=== PATIENT | female | born 1960 | race Caucasian/White ===

== ENCOUNTER 2019-11-22 08:36 | Inpatient (IN) | payer BC ==
[2019-11-16 13:05] LABS: BASOPHILS # (AUTO) 0.1 X10'3 (0-0.2); BASOPHILS % (AUTO) 1.4 % (0-1); EOSINOPHILS # (AUTO) 0.7 X10'3 (0-0.9); LYMPHOCYTES # (AUTO) 2.6 X10'3 (1.1-4.8); LYMPHOCYTES % (AUTO) 26.9 % (21-51); MEAN CORPUSCULAR HEMOGLOBIN 33.2 PG (27.0-31.0); MEAN CORPUSCULAR HGB CONC 34.3 g/dL (33.0-36.5); MEAN CORPUSCULAR VOLUME 96.9 FL (78-98); MEAN PLATELET VOLUME 7.9 FL (7.4-10.4); MONOCYTES # (AUTO) 0.8 X10'3 (0-0.9); MONOCYTES % (AUTO) 8.7 % (2-12); NEUTROPHILS # (AUTO) 5.4 X10'3 (1.8-7.7); PRE OP HEMATOCRIT 41.6 % (35.0-45.0); PRE OP HEMOGLOBIN 14.3 g/dL (12.0-16.0); PRE OP PLATELET COUNT 258 X10'3 (140-440); RED BLOOD COUNT 4.29 X10'6 (4.20-5.60); RED CELL DISTRIBUTION WIDTH 12.7 % (11.5-14.5)
[2019-11-16 13:14] LABS: PRE OP INR 1.1 INR; PRE OP PROTIME 10.9 SECONDS (9.0-12.0)
[2019-11-16 13:17] LABS: ALBUMIN 3.9 G/DL (3.4-5.0); ALBUMIN/GLOBULIN RATIO 1.2 (1.1-1.5); ALKALINE PHOSPHATASE 57 IU/L (46-116); BLOOD UREA NITROGEN 13 MG/DL (7-18); BUN/CREATININE RATIO 19.1 (6.6-38.0); CALCIUM 8.7 MG/DL (8.5-10.1); CHLORIDE 106 MMOL/L (99-107); CREATININE 0.68 MG/DL (0.40-0.90); PRE OP ALT 24 U/L (30-65); PRE OP ANION GAP 8 (8-16); PRE OP AST 18 U/L (10-37); PRE OP BILIRUB, TOTAL 0.3 MG/DL (0.0-1.0); PRE OP GLUCOSE 89 MG/DL (70-104); PRE OP POTASSIUM 4.3 MMOL/L (3.4-5.1); PRE OP SODIUM 142 MMOL/L (135-145); TOTAL CARBON DIOXIDE 27.6 MMOL/L (24-32); TOTAL PROTEIN 7.2 G/DL (6.4-8.2); eGFR 90 ML/MIN
[2019-11-22] VITALS (16 sets, daily range): BP systolic 101–135; BP diastolic 57–102
[~2019-11-22] VITALS: Ht 162.6 cm; Wt 61.2 kg
[~2019-11-22 08:36] MED LIST: ACET-1025 PO; BUPIVAcaine/PF 2.5 mg/ml (0.25%) 30ml vial ONE; CALC1TAB PO; DEXL60CA3 PO; ESTR-4 PO; FLUO-1 PO; IRON PO; LIDOcaine 1% 30ml preserv. free vial ONE; LINA145C PO; SUPER B COMPLEX PO; clindamycin-Cleocin 900mg/D5W 50 ML IV ONE; famotidine 20mg tablet PO ONE; gentamicin inj 300 MG in normal saline 100ml IV soln 92.5 ML IV ONE; ringers solution, lacted 1,000 ML IV SCH
[2019-11-22] MEDS ORDERED: dexamethasone sod phosphate 10mg/ml inj ONE (11:43)
[2019-11-22] MEDS ORDERED: sevoflurane 250ml liquid IH ONE (11:43)
[2019-11-22] MEDS ORDERED: midazolam 2 mg/2 ml injection ONE (11:49)
[2019-11-22] MEDS ORDERED: fentaNYL /PF 50mcg/ml 5ml ampule ONE (11:49)
[2019-11-22] MEDS ORDERED: rocuronium 10mg/ml inj IV ONE (11:50)
[2019-11-22] MEDS ORDERED: propofol inj 20 ML IV ONE (11:50)
[2019-11-22] MEDS ORDERED: ringers solution, lacted 1,000 ML IV SCH (12:21)
[2019-11-22] MEDS ORDERED: morphine 2 MG/ML inj. syringe IV PRN (12:25)
[2019-11-22] MEDS ORDERED: meperidine/PF 25mg/ml syringe IV PRN ×2 (12:25)
[2019-11-22] MEDS ORDERED: ondansetron/PF 4mg/2ml inj IV PRN (12:25)
[2019-11-22] MEDS ORDERED: morphine 4 MG/ML inj SYRINge IV PRN (12:25)
[2019-11-22] MEDS ORDERED: proCHLORperazine 10 MG/2 ml inj IV PRN (12:25)
[2019-11-22] MEDS ORDERED: ondansetron/PF 4mg/2ml inj ONE (13:09)
[2019-11-22] MEDS ORDERED: neostigmine methylsulfate 1 MG/ML 10ml vial ONE (13:09)
[2019-11-22] MEDS ORDERED: glycopyrrolate 0.2mg/ml inj ONE (13:09)
[2019-11-22] MEDS ORDERED: zolpidem 5mg tablet PO PRN (13:20)
--- NOTE | 2019-11-22 13:20 | NUR ---
RECEIVED FROM OR VIA BED ACCOMPANIED BY ANESTHESIOLOGIST DR CAREY, REPORT GIVEN. PT DROWSY BUT AROUSES EASILY WITH NO COMPLAINT OF PAIN AT THIS TIME. 20 GAUGE PIV L WRIST PATENT AND RUNNING LR AT 100 ML/HR. LG BANDAID DRESSING X3 TO ABD CDI, ABD SOFT. PPULSES PRESENT, GOOD CAP REFILL, VSS, [place]O, SCDS APPLIED, F/C DRAINING CLEAR YELLOW FLUID, RESTING COMFORTABLY.
[2019-11-22] MEDS ORDERED: HYDROmorphone 1 mg/ml syringe IV PRN (13:25)
[2019-11-22] MEDS: meperidine/PF 25mg/ml syringe IV PRN ×2 (13:38→14:19)
--- NOTE | 2019-11-22 13:45 | NUR ---
Patient in room [facility]. I have received report from Cassi GOLDMAN and had the opportunity to ask questions and assume patient care.
--- NOTE | 2019-11-22 15:48 | NUR ---
patient alert and orientated. no c/o pain. Orientated to room. VSS IDC clear yellow urine. lapsites x3 CDI. will continue to monitor
[2019-11-22] MEDS: Potassium Cl inj 20 MEQ in ringers solution, lacted 1,000 ML IV SCH (16:20)
[2019-11-22] MEDS: oxyCODONE/APAP 5-325mg tablet PO PRN (16:28)
--- NOTE | 2019-11-22 17:10 | NUR ---
percocet given for pain with relief.
--- NOTE | 2019-11-22 18:19 | NUR ---
Patient in room [facility]. I have received report from JONES Ayon and had the opportunity to ask questions and assume patient care. Addendum: 11/22/19 at 1820 by Sarah Uribe RN Amended: Links added.
--- NOTE | 2019-11-22 18:31 | NUR ---
Problems reprioritized. Patient report given, questions answered & plan of care reviewed with Herminia Caldera RN.
[2019-11-22] MEDS: ondansetron/PF 4mg/2ml inj IV PRN (21:06)
[2019-11-22] MEDS: pantoprazole 40mg Tablet.DR PO SCH (21:07)
[2019-11-22] MEDS: enoxaparin 30mg/0.3ml syringe SQ SCH (21:07)
[2019-11-23] VITALS: BP 108/60
[2019-11-23] MEDS: oxyCODONE/APAP 5-325mg tablet PO PRN ×2 (00:38→09:49)
[2019-11-23] MEDS: Potassium Cl inj 20 MEQ in ringers solution, lacted 1,000 ML IV SCH ×2 (00:39→09:50)
[2019-11-23 04:52] VITALS: BP 125/62
--- NOTE | 2019-11-23 05:59 | NUR ---
F/C d/c's at 0530 and patient walked about 300 feet
--- NOTE | 2019-11-23 06:29 | NUR ---
Problems reprioritized. Patient report given, questions answered & plan of care reviewed with JONES Pillai.
--- NOTE | 2019-11-23 06:30 | NUR ---
Patient in room [facility]. I have received report from Herminia Menendez RN and had the opportunity to ask questions and assume patient care.
[2019-11-23] MEDS: ondansetron/PF 4mg/2ml inj IV PRN (07:15)
[2019-11-23 08:00] VITALS: BP 128/64
[2019-11-23] MEDS ORDERED: LINACLOTIDE 145 MCG CAP PO SCH (08:00)
[2019-11-23] MEDS ORDERED: calcium carbonate/vitamin D3 tablet PO SCH (08:00)
[2019-11-23] MEDS: pantoprazole 40mg Tablet.DR PO SCH (08:00)
[2019-11-23] MEDS ORDERED: FLUoxetine 20mg capsule PO SCH (08:00)
[2019-11-23] MEDS: enoxaparin 30mg/0.3ml syringe SQ SCH (08:00)
[2019-11-23] MEDS ORDERED: metoclopramide 5 mg/ml inj IV PRN (08:55)
[2019-11-23 12:00] VITALS: BP 135/69
[2019-11-23] MEDS ORDERED: ondansetron 4mg rapidly disintigrating tab PO PRN (13:30)
[2019-11-23] MEDS ORDERED: HYDR-4383 PO (13:35)
[2019-11-23] MEDS ORDERED: ONDA4TAB12 PO (13:54)
== END 2019-11-23 14:34 | disposition home or self-care (01) | DRG 331 ==
LOC: PRE-OP 08:36 → EDSTATUS 12:45 → SUR 3N 13:17
PROVIDERS: ADMIT Surgery; ATTEND Surgery
PROC: 8E0W4CZ Robotic Assisted Procedure of Trunk Region, Percutaneous Endoscopic Approach (ICD-10-PCS; 2019-11-22)
PROC: 0DQ84ZZ Repair Small Intestine, Percutaneous Endoscopic Approach (ICD-10-PCS; principal; 2019-11-22 11:43)
DX: K56.1 Intussusception (principal); Z98.84 Bariatric surgery status; Z20.828 Contact with and (suspected) exposure to other viral communicable diseases
CPT/HCPCS: Z7506; Z7508; 36415; 71046; 80053; 82948; 85025; 85610; 85730; 86885; 86900; 86901; 87081; 87635; 93005; A4215; A4618; C1758; G0378; J1100; J1170; J1580; J1650; J2001; J2175; J2250; J2405; J2704; J2710; J2765; J3010; J3480; J3490; J7120

== ENCOUNTER → 2021-01-09 | Outpatient (CLI) | payer BC ==
[~2021-01-09] MED LIST changes: -BUPIVAcaine/PF 2.5 mg/ml (0.25%) 30ml vial ONE; +HYDR-4383 PO; -LIDOcaine 1% 30ml preserv. free vial ONE; +ONDA4TAB12 PO; -clindamycin-Cleocin 900mg/D5W 50 ML IV ONE; -famotidine 20mg tablet PO ONE; -gentamicin inj 300 MG in normal saline 100ml IV soln 92.5 ML IV ONE; -ringers solution, lacted 1,000 ML IV SCH
== END | disposition home or self-care (01) ==
LOC: RAD 09:22
DX: R10.32 Left lower quadrant pain (principal)
CPT/HCPCS: 76705

== ENCOUNTER 2021-05-14 11:56 | Day surgery (SDC) | payer BC, MEDICAID ==
[2021-05-07 15:38] LABS: CLARITY,URINE CLEAR (Clear); COLOR,URINE YELLOW (Yellow); GLUCOSE, URINE NEGATIVE (Neg); KETONES,URINE NEGATIVE (Neg); LEUKOCYTE ESTERASE ,URINE NEGATIVE (Neg); NITRITES, URINE NEGATIVE (Neg); OCCULT BLOOD,URINE NEGATIVE (Neg); PROTEIN,URINE NEGATIVE (Neg); UROBILINOGEN,URINE 0.2 E.U/dL (0.2-1.0)
[2021-05-07 15:41] LABS: UA COLLECTION TYPE CLN CATCH MIDSTREAM
[2021-05-07 15:45] LABS: BASOPHILS # (AUTO) 0.1 X10'3 (0-0.2); BASOPHILS % (AUTO) 1.2 % (0-1); EOSINOPHILS # (AUTO) 0.6 X10'3 (0-0.9); EOSINOPHILS % (AUTO) 6.2 % (0-6); LYMPHOCYTES # (AUTO) 2.9 X10'3 (1.1-4.8); LYMPHOCYTES % (AUTO) 28.8 % (21-51); MEAN CORPUSCULAR HEMOGLOBIN 31.6 PG (27.0-31.0); MEAN CORPUSCULAR HGB CONC 33.8 g/dL (33.0-36.5); MEAN CORPUSCULAR VOLUME 93.5 FL (78-98); MEAN PLATELET VOLUME 7.9 FL (7.4-10.4); MONOCYTES # (AUTO) 0.8 X10'3 (0-0.9); MONOCYTES % (AUTO) 7.6 % (2-12); NEUTROPHILS # (AUTO) 5.6 X10'3 (1.8-7.7); NEUTROPHILS % (AUTO) 56.2 % (42-75); PRE OP HEMATOCRIT 38.9 % (35.0-45.0); PRE OP HEMOGLOBIN 13.1 g/dL (12.0-16.0); PRE OP PLATELET COUNT 271 X10'3 (140-440); RED BLOOD COUNT 4.16 X10'6 (4.20-5.60); RED CELL DISTRIBUTION WIDTH 13.1 % (11.5-14.5)
[2021-05-07 15:55] LABS: ALBUMIN 3.1 G/DL (3.4-5.0); ALBUMIN/GLOBULIN RATIO 1.3 (1.1-1.5); ALKALINE PHOSPHATASE 84 IU/L (46-116); BLOOD UREA NITROGEN 22 MG/DL (7-18); BUN/CREATININE RATIO 43.1 (6.6-38.0); CALCIUM 8.1 MG/DL (8.5-10.1); CHLORIDE 110 MMOL/L (99-107); CREATININE 0.51 MG/DL (0.40-0.90); PRE OP ALT 27 U/L (30-65); PRE OP ANION GAP 10 (8-16); PRE OP AST 19 U/L (10-37); PRE OP BILIRUB, TOTAL 0.2 MG/DL (0.0-1.0); PRE OP GLUCOSE 97 MG/DL (70-104); PRE OP POTASSIUM 4.1 MMOL/L (3.4-5.1); PRE OP SODIUM 146 MMOL/L (135-145); TOTAL CARBON DIOXIDE 25.8 MMOL/L (24-32); TOTAL PROTEIN 5.4 G/DL (6.4-8.2); eGFR > 90 ML/MIN
[~2021-05-14] VITALS: Ht 162.6 cm; Wt 61.5 kg
[~2021-05-14 11:56] MED LIST changes: -ACET-1025 PO; +ASCO-139 PO; +ASPI-1085 PO; +AZEL137S4 BOTHNARES; +BACL20TA PO; +CALC-1215 PO; -CALC1TAB PO; +CARB15DR EACHEYE; -ESTR-4 PO; -HYDR-4383 PO; +LORA10TA7 PO; +MULT-1085 PO; +NAPR-56 PO; -ONDA4TAB12 PO; +PYRI-3 PO; +SENN-263 PO; -SUPER B COMPLEX PO; +TRAM50TA2 PO; +albuterol 2.5 MG/3 ML nebule NEB PRN; +famotidine 20mg tablet PO ONE; +ringers solution, lacted 1,000 ML IV SCH
[2021-05-14 12:00] VITALS: BP 138/83
[2021-05-14] MEDS ORDERED: labetalol 20mg/4ml (5mg/ml) syringe IV PRN (13:10)
[2021-05-14] MEDS ORDERED: ringers solution, lacted 1,000 ML IV SCH (13:10)
[2021-05-14] MEDS ORDERED: hydrALAZINE 20mg/ml inj. IV PRN (13:10)
[2021-05-14] MEDS ORDERED: fentaNYL/PF 50MCG/1 ML 2ML syringe IV PRN ×2 (13:10)
[2021-05-14] MEDS ORDERED: morphine 2 MG/ML inj. syringe IV PRN (13:10)
[2021-05-14] MEDS ORDERED: morphine 4 MG/ML inj SYRINge IV PRN (13:10)
[2021-05-14] MEDS ORDERED: ondansetron/PF 4mg/2ml inj IV PRN (13:10)
[2021-05-14] MEDS ORDERED: LIDOcaine 1% 30ml preserv. free vial ONE (14:24)
[2021-05-14] MEDS ORDERED: BUPIVAcaine 0.5% inj/PF 30 ML ONE (14:24)
[2021-05-14] MEDS ORDERED: sevoflurane 250ml liquid IH ONE (14:44)
[2021-05-14] MEDS ORDERED: fentaNYL/PF 50MCG/1 ML 2ML syringe ONE (14:49)
[2021-05-14] MEDS ORDERED: midazolam 1 mg/ML 2ml injection ONE (14:50)
[2021-05-14] MEDS ORDERED: propofol inj 20 ML IV ONE (14:51)
[2021-05-14] MEDS ORDERED: ondansetron/PF 4mg/2ml inj ONE (14:51)
[2021-05-14] MEDS ORDERED: LIDOcaine 2% (20mg/ml) 5ml vial ONE (14:52)
[2021-05-14] MEDS ORDERED: dexamethasone sod phosphate 4mg/ml inj. ONE (14:53)
[2021-05-14] MEDS ORDERED: bacitracin 15gm ointment TP ONE (15:45)
[2021-05-14 15:52] VITALS: BP 128/82
--- NOTE | 2021-05-14 15:59 | NUR ---
Received from OR via [facility], accompanied by Anesthesiologist JM and report given by Anesthesiolgist. PATIENT WITH 20 GAUGE IV R HAND LR @ 100. 10L MASK 100% SATURATED. HAWA PAD PRESENT CDI. VSS. NO COMPLAINTS OF PAIN. Addendum: 05/14/21 at 1610 by Arsenio Canela RN, RN Amended: Links added.
[2021-05-14 16:00] VITALS: BP 128/82
[2021-05-14 16:10] VITALS: BP 120/77
[2021-05-14 16:20] VITALS: BP 121/70
[2021-05-14 16:30] VITALS: BP 111/68
--- NOTE | 2021-05-14 16:42 | NUR ---
ALL DISCHARGE CRITERIA HAS BEEN MET. VSS, PAIN AT A TOLERABLE LEVEL, VOIDING AND ABLE TO SAFELY AMBULATE AND TRANSFER SELF. IV TAKEN OUT WITHOUT ANY COMPLICATIONS. ALL DISCHARGE INSTRUCTIONS COVERED WITH PATIENT AND ALL QUESTIONS ANSWERED. PATIENT TAKEN OUT VIA WHEELCHAIR TO PERSONAL VEHICLE WHERE FAMILY/FRIEND DROVE PATIENT HOME. Addendum: 05/14/21 at 1702 by Arsenio Canela RN, RN Amended: Links added.
== END 2021-05-14 16:42 | disposition home or self-care (01) ==
LOC: PAS 11:56
PROVIDERS: ATTEND Obstetrics & Gynecology Obstetrics
DX: N90.89 Other specified noninflammatory disorders of vulva and perineum (principal); L72.0 Epidermal cyst; L91.8 Other hypertrophic disorders of the skin; D64.9 Anemia, unspecified; F41.9 Anxiety disorder, unspecified; F32.A Depression, unspecified; G43.909 Migraine, unspecified, not intractable, without status migrainosus; F17.210 Nicotine dependence, cigarettes, uncomplicated; Z98.84 Bariatric surgery status; Z20.822 Contact with and (suspected) exposure to COVID-19; Z98.890 Other specified postprocedural states; Z79.899 Other long term (current) drug therapy; Z88.0 Allergy status to penicillin; Z82.49 Family history of ischemic heart disease and other diseases of the circulatory system
CPT/HCPCS: 36415; 56605; 56606; 71046; 80053; 81003; 82948; 85025; 86885; 86900; 86901; 93005; J1100; J2250; J2405; J2704; J3010; J3490; J7030; J7120; S0020; U0003; U0005; Z7506; Z7508; Z7512; A4618; A6258; A7000

== ENCOUNTER 2022-09-13 06:04 | Emergency (ER) | payer BC, MEDICAID ==
[~2022-09-13] VITALS: Ht 162.6 cm; Wt 63.8 kg
[~2022-09-13 06:04] MED LIST changes: -albuterol 2.5 MG/3 ML nebule NEB PRN; -famotidine 20mg tablet PO ONE; -ringers solution, lacted 1,000 ML IV SCH
[2022-09-13 07:38] LABS: BASOPHILS # (AUTO) 0.1 X10'3 (0-0.2); BASOPHILS % (AUTO) 0.8 % (0-1); EOSINOPHILS # (AUTO) 0.1 X10'3 (0-0.9); EOSINOPHILS % (AUTO) 0.7 % (0-6); HEMATOCRIT 47.5 % (35.0-45.0); HEMOGLOBIN 15.6 g/dl (12.0-16.0); LYMPHOCYTES # (AUTO) 2.8 X10'3 (1.1-4.8); LYMPHOCYTES % (AUTO) 20.3 % (21-51); MEAN CORPUSCULAR HEMOGLOBIN 31.1 PG (27.0-31.0); MEAN CORPUSCULAR HGB CONC 32.8 g/dL (33.0-36.5); MEAN CORPUSCULAR VOLUME 94.9 FL (78-98); MEAN PLATELET VOLUME 7.3 FL (7.4-10.4); MONOCYTES # (AUTO) 1.5 X10'3 (0-0.9); MONOCYTES % (AUTO) 10.7 % (2-12); NEUTROPHILS # (AUTO) 9.4 X10'3 (1.8-7.7); NEUTROPHILS % (AUTO) 67.5 % (42-75); PLATELET COUNT 306 X10'3 (140-440); RED CELL DISTRIBUTION WIDTH 14.5 % (11.5-14.5); WHITE BLOOD COUNT 13.9 X10'3 (4.5-11.0)
[2022-09-13 08:15] VITALS: BP 118/62
[2022-09-13 09:33] LABS: BLOOD UREA NITROGEN 19 MG/DL (7-18); CHLORIDE 105 MMOL/L (99-107); CREATININE 0.76 MG/DL (0.40-0.90); GLUCOSE 82 MG/DL (70-104); POTASSIUM 3.8 MMOL/L (3.5-5.1); SODIUM 141 MMOL/L (135-145); eGFR 78 ML/MIN
[2022-09-13 09:35] LABS: ALANINE AMINOTRANSFERASE 21 U/L (12-78); ALBUMIN 3.7 G/DL (3.4-5.0); ALBUMIN/GLOBULIN RATIO 1.2 (1.1-1.5); ALKALINE PHOSPHATASE 86 IU/L (46-116); ANION GAP 19 (8-16); ASPARTATE AMINO TRANSFERASE 17 U/L (10-37); BILIRUBIN,TOTAL 0.2 MG/DL (0.1-1.0); CALCIUM 8.8 MG/DL (8.5-10.1); TOTAL CARBON DIOXIDE 17.1 MMOL/L (24-32); TOTAL PROTEIN 6.9 G/DL (6.4-8.2)
== END 2022-09-13 08:19 | disposition home or self-care (01) ==
LOC: ER 06:05
DX: F41.9 Anxiety disorder, unspecified (principal); Z88.0 Allergy status to penicillin; Z98.890 Other specified postprocedural states
CPT/HCPCS: 36415; 80053; 85025; 99283

== ENCOUNTER 2024-09-03 13:34 | Emergency (ER) | payer MEDICARE, MEDICAID ==
[~2024-09-03] VITALS: Ht 162.6 cm; Wt 54.5 kg
[~2024-09-03 13:34] MED LIST changes: -ASPI-1085 PO; +ASPI-1395 PO; -SENN-263 PO; +SENN-360 PO
[2024-09-03 13:53] VITALS: BP 138/81; PULSE 71; RESP 18; O2SAT 98
--- NOTE | 2024-09-03 16:25 | Physician Documentation ---
History of Present Illness ~ Chief Complaint: Flu Symptoms Stated Complaint: COVID POSITIVE Time Seen by MD: 15:33 Primary Medical Doctor: Billy HPI 63-year-old female presents to the ED with complaint of being positive for COVID. She states she is otherwise healthy. States that she feels tired and does not have a cough.negative Fever. Medication Reconciliation Allergies: Coded Allergies: Penicillins (Verified Allergy, Intermediate, RASH, 09/03/24) Scheduled Ascorbic Acid (Vitamin C), 1 TAB PO DAILY, (Reported) Aspirin/Caffeine (Anacin 400-32 mg Tablet), 1 TAB PO DAILY, (Reported) Azelastine HCl (Azelastine HCl), 2 SPRAYS BOTHNARES DAILY, (Reported) Baclofen (Baclofen), 1 TAB PO TID, (Reported) Calcium Carbonate/Vitamin D3 (Calcium + D 600 Mg Tablet), 2 EACH PO DAILY, (Reported) Carboxymethylcellulose Sodium (Refresh Tears), 2 DROP EACHEYE DAILY, (Reported) Dexlansoprazole (Dexilant), 60 MG PO BID, (Reported) Fluoxetine Hcl (Prozac), 1 TAB PO DAILY, (Reported) Linaclotide (Linzess), 1 TAB PO DAILY, (Reported) Loratadine (Loratadine), 1 TAB PO DAILY, (Reported) Multivitamin (Multi Vitamin Daily), 1 TAB PO DAILY, (Reported) Naproxen (Naproxen), 2 TAB PO DAILY, (Reported) Pyridoxine Hcl (Vitamin B-6), 100 MG PO DAILY, (Reported) Sennosides (Senna), 4 TAB PO DAILY, (Reported) [Iron [place]], 325 MG PO DAILY, (Reported) Scheduled PRN Tramadol Hcl (Tramadol Hcl), 1 TAB PO Q6H PRN for pain, (Reported) Past Medical History Past Medical History: No Pertinent History Past Surgical History: , gastric bypass Patient History: FH: dementia MOTHER FHx: renal failure FATHER, Alcohol Use: Occasionally Drug Use: none Lives In: Home Review of Systems All Other Systems at this time: Reviewed and Negative ROS As stated above in the HPI, otherwise all systems are reviewed and negative. Physical Exam Vital Signs: Temperature: 97.3, Source: Temporal, Heart Rate: 71, Respiratory Rate: 18, BP: 138/81, Pulse Oximetry: 98, Weight: 54.550 Physical Exam General: Alert, no apparent distress. Respiratory: Lungs clear, no respiratory distress. Chest: No accessory muscle use. Cardiovascular: Regular rate and rhythm, no murmurs. Neurologic: Oriented x4. Psychiatric: Normal mood and affect. Progress Results/Orders Results/Orders Vital Signs 09/03/24 13:53 Temp 97.3 Pulse 71 Resp 18 B/P (MAP) 138/81 Pulse Ox 98 Departure Disposition: HOME / SELF CARE / HOMELESS Impression: Primary Impression: Viral infection Condition: Stable Discharge Instructions: Viral Illness Additional Instructions: Increase rest fluid intake and return to the ED if you have any worsening symptoms Referrals: NO PRIMARY CARE PROVIDER (PCP) Signature Scribe Signature: e Attestation: The note accurately reflects work and decisions made by me.Henrique Canela NP 09/03/24 16:42 HENRIQUE NAIK NP Sep 03, 2024 16:25
[2024-09-03 16:46] VITALS: TEMP 97.3
== END 2024-09-03 16:47 | disposition home or self-care (01) ==
LOC: ER 13:35
DX: B34.9 Viral infection, unspecified (principal); Z88.0 Allergy status to penicillin; Z98.84 Bariatric surgery status
CPT/HCPCS: 99281

== ENCOUNTER 2024-12-31 08:21 | Outpatient (CLI) | payer MEDICARE, MEDICAID ==
--- NOTE | 2024-12-31 09:53 | RADIOLOGY REPORT ---
INDICATION: GENERALIZED ABDOMINAL PAIN/TOBACCO USE TECHNIQUE: Multiple real-time sonographic images of the abdomen were obtained. COMPARISON: ULTRASOUND OF ABDOMEN on DOS: 01/09/21 FINDINGS: Liver is homogenous in echogenicity. The liver measures 15.09 cm. No intrahepatic biliary ductal dilatation is noted. The gallbladder wall measures 0.2 cm and is unremarkable. No gallstones or gallbladder sludge. No pericholecystic fluid or edema. The common duct measures 0.3 cm and is unremarkable. The right kidney measures 9.74 cm. No hydronephrosis. The left kidney measures 10.8 cm. No hydronephrosis. The spleen measures 9.21 cm, within normal limits. The echogenicity is within normal limits. The pancreas is not well visualized due to obscuration from bowel gas. The visualized portions of the IVC and aorta are grossly unremarkable. IMPRESSION: Normal exam of the abdomen.
--- NOTE | 2024-12-31 11:25 | RADIOLOGY REPORT ---
Procedure: CT CT CHEST LOW DOSE Reason for study/Clinical History: USE OF TOBACCO COMPARISON: None TECHNIQUE: Multidetector CT of the chest was performed from the lung apices to the upper abdomen without the use of intravenous contract. Axial, coronal and sagittal multiplanar reformats were performed. Radiation Dose Information: CT Dose: CTDI volume is 1.87 mGy. Dose-length product is 75.33 mGy*cm The dose indicators for CT are the volume Computed Tomography (CT) Dose Index (CTDIvol) and the Dose Length Product (DLP), and are measured in units of mGy and mGy-cm, respectively. These indicators are not patient dose, but values generated from the CT scanner acquisition factors. The report includes radiation exposure data for exposures received during this examination. FINDINGS: Lower neck: Normal thyroid. Lungs: Inferior right upper lobe spiculated nodule measuring 2.4 x 1.8 cm with mild surrounding ground glass opacity. Right lower lobe subpleural ground glass nodule measuring 7 mm (series 2, image 106). Heart/Vascular Structures: Normal heart size. No pericardial effusion. Lymph Nodes: No adenopathy Pleura: No pleural effusion or significant pneumothorax. Musculoskeletal: No acute osseous abnormality. Soft tissues: Normal. Upper abdomen: Moderate sized hiatal hernia. IMPRESSION: Morphologically suspicious right upper lobe 2.4 cm nodular density, non-specific for a true pulmonary nodule versus focal airspace disease. LUNG RADS 4B LUNG RADS Category 4B and 4X: Chest CT with or without contrast, as appropriate PET-CT and/or tissue sampling depending on the probability of malignancy and comorbidities (PET-CT if solid component 8 mm) for new large nodules that develop on an annual repeat screening CT, a 1 month LDCT may be recommended to address potentially infectious or inflammatory conditions.
== END 2024-12-31 23:59 | disposition home or self-care (01) ==
LOC: RAD 08:21
PROVIDERS: ATTEND Family Medicine
DX: Z12.2 Encounter for screening for malignant neoplasm of respiratory organs (principal); R91.8 Other nonspecific abnormal finding of lung field; R10.84 Generalized abdominal pain; F17.210 Nicotine dependence, cigarettes, uncomplicated
CPT/HCPCS: 71271; 76700

== ENCOUNTER 2025-01-22 03:02 | Emergency (ER) | payer MEDICARE, MEDICAID ==
[~2025-01-22] VITALS: Ht 162.6 cm; Wt 56.8 kg
--- NOTE | 2025-01-22 03:30 | Physician Documentation ---
History of Present Illness ~ General Chief Complaint: Multiple Medical Complaints Stated Complaint: VOMITING,RAPID HEART RATE Time Seen by MD: 03:15 Primary Medical Doctor: [place] Source: patient Mode of Arrival: POV Exam Limitations: no limitations History of Present Illness Initial Comments Ms. Coello is a 64 y/o female who presents to the ED from home with c/o a severe ONTIVEROS that she rates an 11/10. She states that the ONTIVEROS started last week on Tuesday and has been persistent since onset. Nothing appears to make it better or worse. No recent febrile illness. No recent head trauma. + neck pain. + nausea/vomiting. No acute visual changes. She does not currently take systemic anticoagulation. Medication Reconciliation Allergies: Coded Allergies: Penicillins (Verified Allergy, Intermediate, RASH, 09/03/24) Scheduled Ascorbic Acid (Vitamin C), 1 TAB PO DAILY, (Reported) Aspirin/Caffeine (Anacin 400-32 mg Tablet), 1 TAB PO DAILY, (Reported) Azelastine HCl (Azelastine HCl), 2 SPRAYS BOTHNARES DAILY, (Reported) Baclofen (Baclofen), 1 TAB PO TID, (Reported) Calcium Carbonate/Vitamin D3 (Calcium + D 600 Mg Tablet), 2 EACH PO DAILY, (Reported) Carboxymethylcellulose Sodium (Refresh Tears), 2 DROP EACHEYE DAILY, (Reported) Dexlansoprazole (Dexilant), 60 MG PO BID, (Reported) Fluoxetine Hcl (Prozac), 1 TAB PO DAILY, (Reported) Linaclotide (Linzess), 1 TAB PO DAILY, (Reported) Loratadine (Loratadine), 1 TAB PO DAILY, (Reported) Multivitamin (Multi Vitamin Daily), 1 TAB PO DAILY, (Reported) Naproxen (Naproxen), 2 TAB PO DAILY, (Reported) Pyridoxine Hcl (Vitamin B-6), 100 MG PO DAILY, (Reported) Sennosides (Senna), 4 TAB PO DAILY, (Reported) [Iron [place]], 325 MG PO DAILY, (Reported) Scheduled PRN Tramadol Hcl (Tramadol Hcl), 1 TAB PO Q6H PRN for pain, (Reported) Past Medical History Past Medical History: No Pertinent History Past Surgical History: , gastric bypass Patient History: FH: dementia MOTHER FHx: renal failure FATHER, Alcohol Use: Occasionally Drug Use: none Lives In: Home Review of Systems All Other Systems at this time: Reviewed and Negative Physical Exam Physical Exam Vital Signs: RN Vital Signs have been reviewed: Yes, Temperature: 100.4, Source: Oral, Heart Rate: 86, Respiratory Rate: 20, BP: 146/76, Pulse Oximetry: 97, Weight: 56.820 Oxygen Flow Rate: 0 Physical Exam GEN: Alert and oriented and in NAD. HEENT: NC/AT. PERRLA. No scleral icterus. MMM. No oral lesions. NECK: Supple. No JVD. CHEST: RRR. No M/G/T. LUNGS: CTA B. No W/R/R. ABD: Soft. NTND. + BS. No rebounding or guarding. BACK: No CVA TTP. EXT: No c/c/e. NEURO: Alert and oriented x 4. Cooperative. Sensorimotor intact x 4 extremities. Progress Results/Orders Results/Orders Orders - LEE MENDOZA MD Electrocardiogram (01/22/25 03:12) LA (01/22/25 03:24) Urinalysis, Cult If Indicated (01/22/25 03:24) Ct Head (01/22/25 03:24) Chest,Single View (01/22/25 03:24) Covid19 Binax Poc Result Entry (01/22/25 03:24) Magnesium Sulf-Water 2g/50ml (Magnesium (01/22/25 04:20) Potassium Cl Inj (Potassium Cl Inj) (01/22/25 04:20) Zithromax 500mg/Ns 250ml X 1 (01/22/25 04:20) Cefepime 1gm/D5w 50ml Q12h (01/22/25 08:00) Completed Orders - LEE MENDOZA MD BMP (01/22/25 03:24) Cbc/Diff (01/22/25 03:24) Liver Panel (01/22/25 03:24) MG (01/22/25 03:24) Pt Inr (01/22/25 03:24) Ct Head (01/22/25 03:24) Chest,Single View (01/22/25 03:24) Fentanyl/Pf (Fentanyl 0.05 Mg/Ml Syringe (01/22/25 03:25) Dexamethasone Inj (Decadron 10mg/Ml Inj) (01/22/25 03:53) Man Diff (01/22/25 03:24) Medications Received in ER Medications (Trade) Dose Ordered Sig/Anastasiya Route PRN Reason Start Time Stop Time Status Last Admin Dose Admin (fentaNYL 0.05 MG/ML syringe) 50 mcg ONCE ONCE IV 01/22/25 03:25 01/22/25 03:26 DC 01/22/25 03:32 50 MCG Vital Signs 01/22/25 01/22/25 03:08 03:32 Temp 100.4 Pulse 86 Resp 20 14 B/P (MAP) 146/76 Pulse Ox 97 O2 Flow Rate 0 Laboratory Tests Test 01/22/25 03:24 01/22/25 03:32 01/22/25 04:12 White Blood Count 26.1 *H Red Blood Count 3.52 L Hemoglobin 10.7 L Hematocrit 31.8 L Mean Corpuscular Volume 90.3 Mean Corpuscular Hemoglobin 30.2 Mean Corpuscular Hemoglobin Concent 33.5 Red Cell Distribution Width 12.9 Platelet Count 656 H Mean Platelet Volume 6.9 L Neutrophils (%) (Auto) 91.4 H Lymphocytes (%) (Auto) 3.6 L Monocytes (%) (Auto) 4.9 Eosinophils (%) (Auto) 0 Basophils (%) (Auto) 0.1 Neutrophils # (Auto) 23.9 H Lymphocytes # (Auto) 0.9 L Monocytes # (Auto) 1.3 H Eosinophils # (Auto) 0.0 Basophils # (Auto) 0.0 CBC Comment Differential Total Cells Counted 100 Neutrophils % (Manual) 92.0 H Lymphocytes % (Manual) 3.0 L Monocytes % (Manual) 5.0 Platelet Estimate Increased Large Platelets Few Giant Platelets Few Red Blood Cell Morphology Normal Basophilic Stippling Prothrombin Time 14.8 H INR International Normalized Ratio 1.5 Coagulation Comments Sodium Level 136 Potassium Level 2.4 *L Chloride Level 98 L Carbon Dioxide Level 27.0 Anion Gap 11 Blood Urea Nitrogen 10 Creatinine 0.79 Estimated GFR/1.73 m2 74 BUN/Creatinine Ratio 12.7 Glucose Level 168 H Calcium Level 8.4 L Magnesium Level 1.8 Total Bilirubin 0.4 Direct Bilirubin 0.1 Aspartate Amino Transf (AST/SGOT) 17 Alanine Aminotransferase (ALT/SGPT) 6 L Alkaline Phosphatase 126 H Total Protein 6.8 Albumin 1.9 L Globulin 4.9 H Albumin/Globulin Ratio 0.4 L Chemistry Comments SARS-CoV-2 Antigen (Rapid) Negative Medical Decision Making Additional information obtaine: family Findings While here in the ED, she remained hemodynamically normal with ABC's intact and in NAD. She has a mild fever with a Tmax of 100.4 and she appears ill and unc omfortable. I reviewed her CXR and there are no radiographic signs to suggest an acute cardiopulmonary process. Lytes with a serum K of 2.4 and Mag of 1.8. Replacing both here in the ED. CBC with significant leukocytosis of 24.8. Sent blood cultures and starting antibiotics. Coags normal. LFT's are within normal ranges. NCCT brain obtained and showed an intracranial 1.7 cm mass along the left corpus callosal body with associated vasogenic edema and mild mass effect, suggestive of primary malignancy or single metastatic lesion. I reviewed the CXR and there is a RLL opacity. Given steroids for vasogenic edema noted on NCCT bra in. She will require transfer to be evaluated by NSGY. She and her family were updated on findings and plan. Questions were answered. Differential Diagnosis aSAH ICH SDH Meningitis RCVS Dural sinus thrombosis Malignancy Departure Disposition: 09 ADMITTED INPATIENT Admission Level of Care: Med/Surg with Tele Impression: Primary Impression: Brain mass Additional Impressions: Lung mass Hypokalemia Hypomagnesemia Sepsis Referrals: NO PRIMARY CARE PROVIDER (PCP) Critical Care Note Total Time (mins): 47 Critical Care Note I have personally spent 47 minutes of critical care time, exclusive of time spent on any procedures, in evaluation and management of this critically ill patients condition of metabolic derangement and intracranial mass with vasogenic edema. ACF Form Admit Criteria Met or Not Met: YES Signature Scribe Signature: N/A Attestation: N/A LEE MENDOZA MD Jan 22, 2025 03:30
[2025-01-22] MEDS: fentaNYL/PF 50MCG/1 ML 2ML syringe IV ONE ×2 (03:32→04:54)
[2025-01-22 03:36] LABS: MEAN PLATELET VOLUME 6.9 FL (7.4-10.4); RED CELL DISTRIBUTION WIDTH 12.9 % (11.5-14.5)
[2025-01-22 03:43] LABS: INR 1.5 INR
[2025-01-22 03:49] LABS: CREATININE 0.79 MG/DL (0.40-0.90); TOTAL CARBON DIOXIDE 27.0 MMOL/L (24-32); eCRCL 64 ML/MIN; eGFR 74 ML/MIN
[2025-01-22] MEDS: dexamethasone sod phosphate 10mg/ml inj IV STA (03:53)
--- NOTE | 2025-01-22 04:00 | RADIOLOGY REPORT ---
CHEST RADIOGRAPH Indication: Shortness of breath. Cough. Technique: Single frontal view of the chest was obtained COMPARISON: CT CT CHEST LOW DOSE on DOS: 12/31/24, CHEST,TWO VIEWS on DOS: 05/07/21 FINDINGS: Lines and Tubes: None Lungs: Focal opacity within the right middle lung zone. The left lung is clear. Pleura: No effusion. No pneumothorax. Cardiomediastinal contours: Unremarkable Bones: Unremarkable IMPRESSION: 1. Focal opacity within the right middle lung zone which may represent developing pneumonia versus mass.
--- NOTE | 2025-01-22 04:07 | RADIOLOGY REPORT ---
EXAM: CT CT HEAD INDICATION: Headache. Concern for ICH. TECHNIQUE: CT of the head without intravenous contrast. Radiation Dose : 1. Head: CT Dose: CTDI volume is 50 mGy. Dose-length product is 926 mGy*cm The dose indicators for CT are the volume Computed Tomography (CT) Dose Index (CTDIvol) and the Dose Length Product (DLP), and are measured in units of mGy and mGy-cm, respectively. These indicators are not patient dose, but values generated from the CT scanner acquisition factors. The report includes radiation exposure data for exposures received during this examination. COMPARISON: None FINDINGS: Brain: Focal heterogeneous, mildly radiopaque lesion abutting the body of the left corpus callosum in the frontal lobe measuring up to 1.7 cm with surrounding vasogenic edema extending along the internal capsule inferiorly. No additional intracranial mass or mass effect. No acute hemorrhage. CSF Spaces: Mild focal effacement of the body of the left lateral ventricle as above. Bones/Soft Tissues: No acute findings. Orbits/Sinuses/Mastoids: Unremarkable as visualized. IMPRESSION: Intracranial 1.7 cm mass along the left corpus callosal body with associated vasogenic edema and mild mass effect, suggestive of primary malignancy or single metastatic lesion. Brain MRI with and without contrast recommended on a nonemergent basis for further characterization. Radiation optimization: All CT scans at this facility use at least one of these dose optimization techniques: automated exposure control mA and/or kV adjustment per patient size (includes targeted exams where dose is matched to clinical indication) or iterative reconstruction.
[2025-01-22 04:08] LABS: GIANT PLATELET FEW; LARGE PLATELETS FEW; LYMPHOCYTES % (MANUAL) 3.0 % (21-51); MONOCYTES % (MANUAL) 5.0 % (2-12); NEUTROPHILS % (MANUAL) 92.0 % (42-75); PLATELET ESTIMATE INCREASED
[2025-01-22] MEDS: magnesium sulf-water 2g/50mL 50 ML IV ONE (04:20)
[2025-01-22] MEDS ORDERED: Potassium Cl inj 40 MEQ in normal saline 500ml IV soln 500 ML IV ONE (04:20)
[2025-01-22] MEDS ORDERED: cefepime 1GM in D5W 50mL 50 ML IV SCH ×2 (04:30→08:00)
[2025-01-22] MEDS: cefepime 1GM in D5W 50mL 50 ML IV ONE ×2 (04:37→05:45)
[2025-01-22] MEDS: azithromycin/NS 500mg/250ml 250 ML IV ONE (05:01)
[2025-01-22] MEDS: potassium Cl 40MEQ/270ML bag 270 ML IV ONE (05:04)
[2025-01-22] MEDS ORDERED: normal saline 500ml IV soln 500 ML IV SCH (05:40)
[2025-01-22] MEDS: potassium CL 10mEq/100ml bag 100 ML IV ONE (05:58)
[2025-01-22] MEDS: normal saline 1000ml 1,000 ML IV ONE (05:58)
--- NOTE | 2025-01-22 06:05 | ELECTROCARDIOGRAPH REPORT ---
[facility] Test Date: 2025-01-22 Test Time: 03:08:34 Pat Name: MARTHA BARAHONA Department: EMERGENCY ROOM Room: Gender: F Modeling Agent: MAEGAN : [id number] Requested By: LEE MENDOZA Order Number: [id number] Reading MD: Dr. Christopher Allen Measurements Intervals [place] Rate: 88 P: 74 UT: 142 QRS: 44 QRSD: 73 T: 54 QT: 371 QTc: 449 Interpretive Statements Sinus rhythm Right atrial enlargement Minimal ST depression, anterolateral leads Electronically Signed On 01-29-2025 20:46:[address] Christopher Allen Please click the below link to view image of tracing.
[2025-01-22] MEDS: ketorolac trometh 15mg/ml vial 15 MG/ML ML IV ONE (06:54)
[2025-01-22] MEDS ORDERED: magnesium sulf-water 2g/50mL 50 ML IV PRN (07:05)
[2025-01-22] MEDS ORDERED: potassium Cl 40MEQ/1/2NS 520ml 520 ML IV PRN (07:05)
[2025-01-22] MEDS ORDERED: magnesium sulf-water 4G/100mL 100 ML IV PRN (07:05)
[2025-01-22] MEDS: potassium Cl 20 mEq SR tablet PO PRN (07:32)
[2025-01-22] MEDS: potassium CL 10mEq/100ml bag 100 ML IV PRN (07:33)
[2025-01-22] MEDS ORDERED: iohexol 300mg/ml 100ml inj. ONE (08:00)
--- NOTE | 2025-01-22 08:04 | RADIOLOGY REPORT ---
Procedure: CT CT CHEST W/ IV CONTRAST Reason for study/Clinical History: R lung mass. Comparison Study: DI CHEST SINGLE VIEW on DOS: 01/22/25. CT chest 12/31/2024. Exam Date: 01/22/2025 07:00 AM Radiation Dose Information: CT Dose: CTDI volume is 8.8 mGy. Dose-length product is 310.1 mGy*cm Contrast: Type of contrast: Omnipaque 300 Contrast inject: 100 mL Contrast wasted:0 TECHNIQUE: CT of the chest was performed with intravenous contrast. Coronal and sagittal reformatted images are submitted. FINDINGS: Lower Neck: Visualized portions of the thyroid gland are unremarkable. Aorta and Vasculature: Normal caliber of thoracic aorta. Lymph Nodes: No enlarged intrathoracic lymph nodes. Mediastinum: Heart size is normal. There is no pericardial effusion. The esophagus is unremarkable. Lungs: There is masslike consolidation in the right upper lobe. This is significantly increased since the prior chest CT from 12/31/2024. Central airways: Patent. Musculoskeletal: No acute osseous abnormality. Upper abdomen: There is a hiatal hernias. Postsurgical changes noted in the stomach. Fluid noted in the distal esophagus. IMPRESSION: 1. Masslike consolidation in the right upper lobe increased since prior study from 12/31/2024 highly suspicious for pneumonia. 2. Recommend follow-up chest CT in 6-8 weeks to document resolution as an underlying mass is not excluded.
[2025-01-22 08:19] LABS: LEUKOCYTE ESTERASE ,URINE NEGATIVE (Neg); NITRITES, URINE NEGATIVE (Neg); OCCULT BLOOD,URINE MODERATE (Neg)
[2025-01-22 08:25] LABS: UA COLLECTION TYPE FOLEY CATH
[2025-01-22 08:27] LABS: MUCUS STRANDS MODERATE /LPF (Neg); SQUAMOUS EPITHELIAL CELL,UR FEW /LPF (FEW)
[2025-01-22 09:05] LABS: MEAN PLATELET VOLUME 6.7 FL (7.4-10.4); RED CELL DISTRIBUTION WIDTH 13.1 % (11.5-14.5)
[2025-01-22 09:20] LABS: CREATININE 0.50 MG/DL (0.40-0.90); TOTAL CARBON DIOXIDE 27.7 MMOL/L (24-32); eCRCL 101 ML/MIN; eGFR > 90 ML/MIN
[2025-01-22] MEDS: acetaminophen 1,000mg/100ml IV 100 ML IV ONE (10:18)
[2025-01-22 11:18] VITALS: BP 136/80; PULSE 78; RESP 9; TEMP 100; O2SAT 91
== END 2025-01-22 17:39 | disposition admitted as inpatient to this hospital (09) ==
LOC: ER 03:02
DX: G93.89 Other specified disorders of brain (principal); R91.8 Other nonspecific abnormal finding of lung field; E83.42 Hypomagnesemia; A41.9 Sepsis, unspecified organism; E87.6 Hypokalemia; Z88.0 Allergy status to penicillin; Z79.82 Long term (current) use of aspirin; Z79.899 Other long term (current) drug therapy; Z72.89 Other problems related to lifestyle; Z98.890 Other specified postprocedural states; Z20.822 Contact with and (suspected) exposure to COVID-19
CPT/HCPCS: 36415; 70450; 71045; 71260; 80048; 80053; 80076; 81001; 83605; 83735; 83880; 85007; 85025; 85610; 87077; 87088; 87186; 87811; 93005; 96365; 96366; 96368; 96375; 96376; 99291; C1758; J0131; J0456; J0692; J0780; J1100; J1171; J1885; J3010; J3480; J7030; Q9967